=== PATIENT | female | born 1955 | race Caucasian/White ===

== ENCOUNTER 2019-02-11 16:39 | Emergency (ER) | payer SELFPAY ==
[~2019-02-11] VITALS: Ht 154.9 cm; Wt 73.5 kg
[~2019-02-11 16:39] MED LIST: TEN25 PO; V2 PO
[2019-02-11 16:52] VITALS: Ht 154.9 cm; Wt 73.5 kg
[2019-02-11 18:42] VITALS: BP 138/76
== END 2019-02-11 18:42 | disposition home or self-care (01) ==
LOC: ED 16:39
DX: S86.911A Strain of unspecified muscle(s) and tendon(s) at lower leg level, right leg, initial encounter (principal); M79.671 Pain in right foot; M79.672 Pain in left foot; I10 Essential (primary) hypertension; E78.00 Pure hypercholesterolemia, unspecified; W18.39XA Other fall on same level, initial encounter; Y93.89 Activity, other specified; Y92.89 Other specified places as the place of occurrence of the external cause; Y99.8 Other external cause status
CPT/HCPCS: Q0092